=== PATIENT | male | born 1955 ===

== ENCOUNTER 2018-02-21 18:53 | Emergency (ER) | payer OTHER ==
[2018-02-21] MEDS ORDERED: ceFAZolin IV 2 gm in Dextrose 2 GM/50 ML BAG IVPB STA (21:35)
[2018-02-21] MEDS ORDERED: Lidocaine/Epi 1% 1:100000 20 ML IJ ONE (21:36)
[2018-02-21] MEDS ORDERED: Lidocaine 1% w Epi 1:100,000 Inj ONE (21:43)
[2018-02-21] MEDS ORDERED: Tdap Vaccine 0.5 ml Vial (10-64 yrs) IM ONE (21:51)
[2018-02-21] MEDS ORDERED: Bupivacaine 0.25% Inj(30mL) IJ ONE (22:05)
[2018-02-21] MEDS ORDERED: Lidocaine 2% MPF (5 ml) Inj INJ ONE (22:05)
[2018-02-21] MEDS ORDERED: Lidocaine 2% MPF (5 ml) Inj ONE (22:17)
[2018-02-21] MEDS ORDERED: Bupivacaine HCl 0.25% PF (30 ml) Inj ONE (22:17)
[2018-02-22 01:12] VITALS: BP 141/82; PULSE 82; RESP 17; TEMP 98.3; O2SAT 98
--- NOTE | 2018-02-22 01:15 | ED PDOC ---
Upper Extremity Pain/Injury Time Seen by Provider: 02/21/18 19:45 Chief Complaint (Nursing): Upper Extremity Problem/Injury History Per: Patient History/Exam Limitations: no limitations Additional Complaint(s): Patient with no PMhx presenting with finger avulsion, L hand pinky finger, got caught in metal door near hinges. Partially avulsed. +Smoker. Brought fingertip on ice. Past Medical History Reviewed: Historical Data, Nursing Documentation, Vital Signs Vital Signs: Last Vital Signs Temp 98.3 F 02/22/18 00:48 Pulse 82 02/22/18 00:48 Resp 17 02/22/18 00:48 BP 141/82 02/22/18 00:48 Pulse Ox 98 02/22/18 00:48 - Medical History PMH: No Chronic Diseases - Family History Family History: States: No Known Family Hx - Immunization History Hx Tetanus Toxoid Vaccination: No Hx Influenza Vaccination: No Hx Pneumococcal Vaccination: No - Home Medications Home Medications: Ambulatory Orders Medication Instructions Recorded Cephalexin [cephalexin] 500 mg PO QID 7 Days #28 cap 02/21/18 Hydrocodone/Acetaminophen [Vicodin 1 each PO Q8 #15 tablet 02/21/18 Es 7.5-300 mg Tablet] Ibuprofen [Motrin Tab] 800 mg PO Q6 #30 tab 02/21/18 - Allergies Allergies/Adverse Reactions: Allergies Allergy/AdvReac Type Severity Reaction Status Date / Time No Known Allergies Allergy Verified 02/21/18 19:10 Review of Systems ROS Statement: Except As Marked, All Systems Reviewed And Found Negative Physical Exam - Reviewed Vital Signs Reviewed: Yes - Physical Exam Appears: Positive for: Well, Non-toxic, No Acute Distress Head Exam: Positive for: ATRAUMATIC, NORMAL INSPECTION, NORMOCEPHALIC Extremity: Positive for: Other (L fifth finger fingertip avulsion, nailbed avulsed, bone exposed, sensation intact, motor intact at DIP) - ECG O2 Sat by Pulse Oximetry: 98 Medical Decision Making Medical Decision Making: Finger tip avulsion --IV ancef ordered --Dr. Booker came and evaluated wound with repair --Will prescribe ABx, pain medications, NSAIDs --Patient to followup with Dr. Booker in one week Disposition - Clinical Impression Clinical Impression: Fingertip avulsion - Patient ED Disposition Is Patient to be Admitted: No Discussed With : Daryl Booker Doctor Will See Patient In The: Office - Disposition Referrals: Daryl Booker MD [Medical Doctor] - Disposition: Routine/Home Disposition Time: 01:00 Condition: IMPROVED Additional Instructions: Please followup with Dr. Booker next 04/01/18. Prescriptions: Cephalexin [cephalexin] 500 mg PO QID 7 Days #28 cap Hydrocodone/Acetaminophen [Vicodin Es 7.5-300 mg Tablet] 1 each PO Q8 #15 tablet Ibuprofen [Motrin Tab] 800 mg PO Q6 #30 tab Instructions: Finger Fracture, Opioids for Short-Term Treatment of Pain, Taking Narcotics Safely, Nail Avulsion, Avulsion Fracture Forms: [facility] ([place])
--- NOTE | 2018-02-22 09:19 | RAD ---
Date of service: 02/21/2018 PROCEDURE: Left small finger radiographs. HISTORY: finger avulsion, distal tip COMPARISON: None. TECHNIQUE: AP radiograph of the left hand, as well as spot oblique and lateral images of left small finger were obtained. FINDINGS: LEFT SMALL FINGER: There is an amputation of the tuft of the distal phalanx left small finger with amputated segment included in this exam. Remainder of the left small finger appears within normal limits. No underlying destructive bony lesions identified and soft tissues are otherwise unremarkable as well. JOINTS: Normal. SOFT TISSUES: Normal. OTHER FINDINGS: None. IMPRESSION: Amputated tuft of distal phalanx left small finger with left small finger otherwise unremarkable.
== END 2018-02-22 00:50 | disposition home or self-care (01) ==
LOC: H.ER 18:53
DX: S61.306A Unspecified open wound of right little finger with damage to nail, initial encounter (principal); W23.0XXA Caught, crushed, jammed, or pinched between moving objects, initial encounter; Y99.0 Civilian activity done for income or pay
CPT/HCPCS: 73140; 90471; 90715; 96365; 99284; J0690